=== PATIENT | female | born 1995 | race Caucasian/White ===

== ENCOUNTER 2025-08-18 19:18 | Emergency (ER) | payer SELFPAY ==
[~2025-08-18] VITALS: Ht 162.6 cm; Wt 63.0 kg
[~2025-08-18 19:18] MED LIST: NALO4SPR BOTHNSTRLS
[2025-08-18 19:23] VITALS: O2SAT 100
[2025-08-18 20:15] VITALS: BP 177/118; PULSE 79; RESP 18; TEMP 37.2; O2SAT 100
[2025-08-18 20:30] LABS: BASOPHILS % 0.5 % (0.0-2.0); EOSINOPHILS % 1.5 % (0.0-5.0); HEMATOCRIT. 27.9 % (36.0-48.0); HEMOGLOBIN. 9.2 g/dL (12.0-16.0); LYMPHOCYTES % 21.7 % (20.0-50.0); MEAN PLATELET VOLUME 8.5 fl (7.4-10.4); MONOCYTES % 4.8 % (2.0-8.0); NEUTROPHILS % 71.5 % (40.0-76.0); PLATELET 266 x1000/uL (130-400); RED BLOOD CELL COUNT 3.15 mill/uL (4.2-5.4); RED CELL DISTRIBUTION WIDTH 13.9 % (11.6-14.6)
[2025-08-18 20:41] LABS: INR 0.8
[2025-08-18 20:58] LABS: CREATININE 0.9 mg/dL (0.6-1.0); HCG SCREEN POSITIVE
[2025-08-18 20:59] LABS: UREA NITROGEN BLOOD 17 mg/dL (9-23)
[2025-08-18 21:00] LABS: ASPARTATE AMINOTRANSFERASE 25 IU/L (<34)
[2025-08-18 21:01] LABS: BILIRUBIN DIRECT < 0.1 mg/dL (<=3.0); BILIRUBIN TOTAL 0.2 mg/dL (0.1-1.0)
[2025-08-18 21:18] LABS: PROTEIN TOTAL 4.4 g/dL (6.0-8.3)
[2025-08-18 21:19] LABS: B-HCG QUANTITATIVE 41590 mIU/mL (<6)
== END 2025-08-18 20:30 | disposition short-term general hospital (02) ==
LOC: ER 19:18
DX: O26.893 Other specified pregnancy related conditions, third trimester (principal); R10.20 Pelvic and perineal pain unspecified side; Z3A.33 33 weeks gestation of pregnancy
CPT/HCPCS: 36415; 76815; 80048; 80076; 84702; 84703; 85025; 86850; 86900; 99291

== ENCOUNTER 2025-08-31 19:43 | Inpatient (IN) | payer MEDICAID ==
[~2025-08-31] VITALS: Ht 162.6 cm; Wt 63.6 kg
[2025-08-31 19:45] VITALS: O2SAT 95
[2025-08-31 20:13] LABS: BASOPHILS % 0.7 % (0.0-2.0); EOSINOPHILS % 0.8 % (0.0-5.0); HEMATOCRIT. 21.8 % (36.0-48.0); HEMOGLOBIN. 7.1 g/dL (12.0-16.0); LYMPHOCYTES % 15.7 % (20.0-50.0); MEAN PLATELET VOLUME 5.8 fl (7.4-10.4); MONOCYTES % 6.3 % (2.0-8.0); NEUTROPHILS % 76.5 % (40.0-76.0); PLATELET 810 x1000/uL (130-400); RED BLOOD CELL COUNT 2.47 mill/uL (4.2-5.4); RED CELL DISTRIBUTION WIDTH 15.1 % (11.6-14.6)
[2025-08-31 20:27] LABS: CREATININE 1.3 mg/dL (0.6-1.0); UREA NITROGEN BLOOD 16 mg/dL (9-23)
[2025-08-31 20:28] LABS: ETHANOL BLOOD < 10 mg/dL (<10)
[2025-08-31 20:29] LABS: HCG SCREEN NEGATIVE; TROPONIN I HIGH SENSITIVITY 15 ng/L (3.0-34)
[2025-08-31] MEDS: LORAZEPAM 2MG/ML UD SYRINGE IV SCH (20:32)
[2025-08-31] MEDS: SODIUM CHLORIDE 0.9% 1,000 ML IV ONE (20:32)
[2025-08-31 23:11] LABS: TROPONIN I HIGH SENSITIVITY 21 ng/L (3.0-34)
[2025-08-31] MEDS: LORAZEPAM 2MG/ML UD SYRINGE IV NR (23:46)
[2025-09-01] MEDS: SODIUM CHLORIDE 0.9% 1,000 ML IV ONE (00:02)
[2025-09-01] MEDS ORDERED: DOCUSATE SODIUM 100MG CAPSULE PO PRN (00:30)
[2025-09-01] MEDS ORDERED: ONDANSETRON HCL 4MG/2ML INJ IV PRN (00:30)
[2025-09-01] MEDS ORDERED: GUAIFENESIN 200MG/10ML SUGAR FREE UDC PO PRN (00:30)
[2025-09-01] MEDS ORDERED: LORAZEPAM 0.5MG TABLET PO PRN (00:30)
[2025-09-01] MEDS ORDERED: CLONIDINE 0.1MG TABLET PO PRN (00:30)
[2025-09-01] MEDS ORDERED: IPRATROPIUM/ALBUTEROL 0.5-3(2.5)MG/3ML NEB HHN PRN (00:30)
[2025-09-01] MEDS ORDERED: ACETAMINOPHEN 325MG TABLET PO PRN ×2 (00:30)
[2025-09-01 01:11] VITALS: BP 134/91; PULSE 98; RESP 19; TEMP 36.5848
[2025-09-01] MEDS: LACTATED RINGERS 1,000 ML IV SCH (01:15)
[2025-09-01 03:19] LABS: PROTEIN TOTAL 6.2 g/dL (6.0-8.3); TRIGLYCERIDE 152 mg/dL (0-150)
[2025-09-01 03:20] LABS: ASPARTATE AMINOTRANSFERASE 50 IU/L (<34); LDL CHOLESTEROL 150 mg/dL (5-100)
[2025-09-01 03:21] LABS: BILIRUBIN DIRECT 0.1 mg/dL (<=3.0); BILIRUBIN TOTAL 0.5 mg/dL (0.1-1.0)
[2025-09-01 04:24] LABS: FOLIC ACID (FOLATE) SERUM 13.69 ng/mL (>5.38)
[2025-09-01 04:26] LABS: VITAMIN B12 SERUM 460 pg/mL (211-911)
[2025-09-01 05:11] VITALS: BP 126/85; PULSE 83; RESP 20; TEMP 35.7; O2SAT 99
[2025-09-01] MEDS ORDERED: NON FORMULARY MED XX SCH (07:45)
[2025-09-01 08:40] LABS: CREATININE 0.9 mg/dL (0.6-1.0); UREA NITROGEN BLOOD 14 mg/dL (9-23)
[2025-09-01 08:44] LABS: BASOPHILS % 0.9 % (0.0-2.0); EOSINOPHILS % 2.6 % (0.0-5.0); HEMATOCRIT. 23.5 % (36.0-48.0); HEMOGLOBIN. 7.5 g/dL (12.0-16.0); LYMPHOCYTES % 29.3 % (20.0-50.0); MEAN PLATELET VOLUME 6.1 fl (7.4-10.4); MONOCYTES % 7.5 % (2.0-8.0); NEUTROPHILS % 59.7 % (40.0-76.0); PLATELET 740 x1000/uL (130-400); RED BLOOD CELL COUNT 2.58 mill/uL (4.2-5.4); RED CELL DISTRIBUTION WIDTH 15.9 % (11.6-14.6)
[2025-09-01] MEDS: IRON SUCROSE COMPLEX 100 MG/5 ML ML IV SCH (08:46)
== END 2025-09-01 15:35 | disposition left against medical advice (07) | DRG 561 ==
LOC: ER 19:43 → EDBEDREQ 23:48 → EDBEDREQTM 23:48 → 6WST 09-01 00:59
PROVIDERS: ADMIT Internal Medicine; ATTEND Internal Medicine
DX: O90.89 Other complications of the puerperium, not elsewhere classified (principal); G92.8 Other toxic encephalopathy; O90.49 Other postpartum acute kidney failure; N17.9 Acute kidney failure, unspecified; E86.0 Dehydration; O72.1 Other immediate postpartum hemorrhage; D50.9 Iron deficiency anemia, unspecified; F15.10 Other stimulant abuse, uncomplicated; F17.210 Nicotine dependence, cigarettes, uncomplicated; O99.284 Endocrine, nutritional and metabolic diseases complicating childbirth; O99.325 Drug use complicating the puerperium; Z53.29 Procedure and treatment not carried out because of patient's decision for other reasons
CPT/HCPCS: 36415; 80048; 80061; 80076; 80320; 82550; 82607; 82746; 83540; 83550; 84484; 84703; 85025; 93005; 96361; 96374; 96376; 99285; A4606; J2060; J7030; G0480